=== PATIENT | female | born 1990 | race Native Hawaiian/Other Pacific Islander ===

== ENCOUNTER 2020-05-28 12:00 | Outpatient (CLI) | payer OTHER | END 2020-05-28 20:09 | disposition home or self-care (01) | LOC: CT 12:00 | PROVIDERS: ATTEND Physician Assistant | DX: R10.9 Unspecified abdominal pain (principal); R11.0 Nausea | CPT/HCPCS: Q9963 ==

== ENCOUNTER 2021-07-27 08:37 | Outpatient (CLI) | payer OTHER | END 2021-07-27 19:38 | disposition home or self-care (01) | LOC: MAMMO 08:37 → US 09:00 → MAMMO 19:38 | PROVIDERS: ATTEND Obstetrics & Gynecology | DX: O92.6 Galactorrhea (principal) | CPT/HCPCS: G0279 ==